=== PATIENT | female | born 1935 | race Caucasian/White ===

== ENCOUNTER 2017-09-23 13:43 | Outpatient (CLI) | payer MEDICARE, OTHER ==
--- NOTE | 2017-09-23 15:06 | RAD ---
PA AND LATERAL CHEST: Indication: Cough. Comparison: None. FINDINGS: There is prominent vertebral plana involving suspected L1 vertebral level. There is mild wedge compre ssion deformity of L2. Chronicity of these fractures is difficult to determine as no comparisons are available. There are healed rib deformities involving the anterior lateral 3rd through 7th ribs. No p leural effusion or pneumothorax is evident. Heart size is within normal limits. IMPRESSION: 1. Age indeterminate compression abnormalities of L1 and L2. MRI or bone scan may be helpful to docum ent chronicity. 2. Healed rib deformities involving the anterolateral right third through seventh ribs. 3. No definite acute cardiopulmonary abnormality. POS: [facility]
== END 2017-09-23 13:44 | disposition home or self-care (01) ==
LOC: NAV RAD 13:43
PROVIDERS: ATTEND Internal Medicine
DX: R05 Cough (principal)
CPT/HCPCS: 71020

== ENCOUNTER 2018-05-26 09:52 | Outpatient (CLI) | payer MEDICARE, OTHER ==
--- NOTE | 2018-05-26 10:40 | RAD ---
CHEST TWO VIEWS: History: Dyspnea. Comparison: 09-23-17 FINDINGS: Cardiac silhouette and pulmonary vasculature are unremarkable. The mediastinum is midline. There is c onfluent airspace consolidation, pneumothorax, or pleural fluid. Old right rib fractures and marked c ompression of the lower thoracic vertebral body are unchanged in appearance from the previous exam. IMPRESSION: Chronic type findings are stable. No active cardiopulmonary abnormalities are demonstrated. POS: [facility]
== END 2018-05-26 09:53 | disposition home or self-care (01) ==
LOC: NAV RAD 09:52
PROVIDERS: ATTEND Internal Medicine
DX: R06.02 Shortness of breath (principal)
CPT/HCPCS: 71046

== ENCOUNTER 2020-12-13 16:55 | Inpatient (IN) | payer MEDICARE, OTHER ==
[2020-12-13 17:45] LABS: Bilirubin Small (Negative); Blood, Urine Trace (Negative); Clarity Clear (Clear); Glucose, Urine (Dipstick) Negative (Negative); Ketone, Urine Negative (Negative); Leukocyte Negative (Negative); Nitrite Positive (Negative); Protein, Urine (Dipstick) Negative (Neg-Trace); Urobilinogen 0.2 mg/dL (Less than 2)
[2020-12-13 17:53] LABS: ALT (SGPT) 22 U/L (8-55); AST (SGOT) 30 U/L (5-34); Albumin 4.4 g/dL (3.4-4.8); Alkaline Phosphatase 80 U/L (40-110); Anion Gap 20 mmol/L (10-20); BUN (Urea Nitrogen) 20 mg/dL (9.8-20.1); Bilirubin, Total 0.6 mg/dL (0.2-1.2); Calc. Creatinine Clearance 0 mL/min (70-130); Calcium 9.1 mg/dL (7.8-10.44); Carbon Dioxide 18 mmol/L (23-31); Chloride 103 mmol/L (98-107); Globulin 3.5 g/dL (2.4-3.5); Glucose 151 mg/dL (83-110); Potassium 4.4 mmol/L (3.5-5.1); Protein, Total 7.9 g/dL (5.8-8.1); Sodium 137 mmol/L (136-145)
[2020-12-13 17:59] LABS: Base Excess-Venous -4.3 mmol/L (-2.0 to 3.0); Bicarbonate (HCO3v) 20.1 mmol/L (22.0-28.0); Calcium, Ionized 1.04 mmol/L (1.15-1.33); Chloride 104 mmol/L (98-107); Hemoglobin - Calc 12.9 g/dL (12.0-16.0); Potassium 4.2 mmol/L (3.5-5.1); Sodium 136 mmol/L (138-145); T. Carbon Dioxide 21.1 mmol/L (22.0-28.0); vO2 Saturation-calc 70.2 % (60.0-85.0)
[2020-12-13 18:01] LABS: Hemoglobin 12.3 g/dL (12.0-16.0); Mean Corpuscular HGB CONC 32.9 g/dL (32.0-36.0); Mean Corpuscular Hemoglobin 33.8 pg (27.0-31.0); Mean Platelet Volume 6.4 fL (7.4-10.4); Platelet Count 255 thou/uL (130-400); RBC Distribution Width 11.8 % (11.5-14.5); Red Blood Cell (RBC) Count 3.64 mill/uL (4.20-5.40); White Blood Cell (WBC) Count 12.1 thou/uL (4.8-10.8)
[2020-12-13 18:05] LABS: RBC/HPF 0-3 HPF (0-3); Squamous Epithelial 0-3 HPF (0-3); WBC/HPF 0-3 HPF (0-3)
[2020-12-13 18:06] LABS: Bacteria/HPF 2+ HPF (None Seen)
[2020-12-13] MEDS ORDERED: Sodium Chloride 0.9% 500 ML ONE (18:11)
[2020-12-13 18:17] LABS: Band 8 % (5-11); Lymphocytes 10 % (21-51); MDiff Complete? YES; Macrocytosis SLIGHT = 6-15 cells (100X) (0-5/hpf); Monocytes 15 % (0-10); Neutrophil 67 % (42-75); Platelet Morphology Comment Appears Adequate
--- NOTE | 2020-12-13 18:18 | RAD ---
AP CHEST: 12/13/20 HISTORY: Cough with fever. COMPARISON: 05/26/18. No focal infiltrate identified. Heart size is upper normal. Vasculature normal. Tiny effusions not ex cluded. IMPRESSION: No evidence of focal infiltrate. POS: [facility]
[2020-12-13] MEDS ORDERED: cefTRIAXone\\ROCEPHIN 2 GM VIAL ONE (19:16)
[2020-12-13] MEDS ORDERED: Sodium Chloride 0.9% 100 ML ONE (19:16)
[2020-12-13] MEDS ORDERED: Sodium Chloride 0.9% 250 ML 250 ML ONE (19:18)
[2020-12-13 20:01] LABS: SARS-CoV-2 NAA Rapid Test Not Detected (NotDetected)
[2020-12-13 22:22] VITALS: BMI 22.1
[2020-12-13] MEDS: D5 1/4 NS 1,000 ML IV SCH (23:48)
[2020-12-14 06:06] LABS: Anisocytosis SLIGHT = 6-15 cells (100X) (0-5/hpf); Band 19 % (5-11); Eosinophils 1 % (0-10); Hemoglobin 11.1 g/dL (12.0-16.0); Lymphocytes 13 % (21-51); MDiff Complete? YES; Mean Corpuscular HGB CONC 33.6 g/dL (32.0-36.0); Mean Corpuscular Hemoglobin 34.1 pg (27.0-31.0); Mean Platelet Volume 6.1 fL (7.4-10.4); Metamyelocyte 3 % (0-0); Monocytes 10 % (0-10); Myelocyte 1 % (0-0); Neutrophil 53 % (42-75); Platelet Count 214 thou/uL (130-400); Platelet Morphology Comment Appears Adequate; RBC Distribution Width 11.6 % (11.5-14.5); Red Blood Cell (RBC) Count 3.27 mill/uL (4.20-5.40); White Blood Cell (WBC) Count 13.6 thou/uL (4.8-10.8)
[2020-12-14 06:08] LABS: Anion Gap 16 mmol/L (10-20); BUN (Urea Nitrogen) 12 mg/dL (9.8-20.1); Calc. Creatinine Clearance 49 mL/min (70-130); Carbon Dioxide 20 mmol/L (23-31); Chloride 105 mmol/L (98-107); Glucose 137 mg/dL (83-110); Potassium 4.2 mmol/L (3.5-5.1); Sodium 137 mmol/L (136-145)
[2020-12-14] MEDS ORDERED: traZODone HCl 50 MG TAB PO PRN (12:41)
[2020-12-14] MEDS: D5 1/4 NS 1,000 ML IV SCH (14:33)
[2020-12-14] MEDS: Timolol 0.5% Ophth Soln 5 ml Bottle EA EYE SCH (20:59)
[2020-12-14] MEDS: Amlodipine 5 MG TAB PO SCH (20:59)
[2020-12-14] MEDS: Atorvastatin Calcium 20 MG TAB PO SCH (21:13)
[2020-12-15] MEDS: D5 1/4 NS 1,000 ML IV SCH (02:59)
[2020-12-15 06:22] LABS: Anion Gap 15 mmol/L (10-20); BUN (Urea Nitrogen) 6 mg/dL (9.8-20.1); Calc. Creatinine Clearance 53 mL/min (70-130); Carbon Dioxide 20 mmol/L (23-31); Chloride 108 mmol/L (98-107); Glucose 123 mg/dL (83-110); Sodium 140 mmol/L (136-145)
[2020-12-15 06:34] LABS: Potassium 2.8 mmol/L (3.5-5.1)
[2020-12-15] MEDS ORDERED: Potassium Chloride 20 MEQ TAB PO SCH ×2 (08:30→09:30)
[2020-12-15] MEDS ORDERED: D5 1/4 NS w/20 mEq KCL 1,000 ML IV SCH (08:30)
[2020-12-15] MEDS: Fluticasone Propionate Nasal Spray 16 gm Bottle NASAL SCH (10:32)
[2020-12-15 10:44] LABS: #Basophils 0.1 thou/uL (0.0-0.2); #Eosinphils 0.2 thou/uL (0.0-0.7); #Lymphocytes 1.3 thou/uL (1.20-3.40); #Monocytes 1.8 thou/uL (0.11-0.59); #Neutrophils 9.3 thou/uL (1.40-6.50); %Basophils 0.6 % (0.0-1.0); %Eosinophils 1.8 % (0.0-10.0); %Lymphocytes 10.1 % (21.0-51.0); %Monocytes 13.9 % (0.0-10.0); %Neutrophils 73.6 % (42.0-75.0); Hemoglobin 13.2 g/dL (12.0-16.0); Mean Corpuscular HGB CONC 32.3 g/dL (32.0-36.0); Mean Platelet Volume 5.6 fL (7.4-10.4); Platelet Count 244 thou/uL (130-400); RBC Distribution Width 12.2 % (11.5-14.5); Red Blood Cell (RBC) Count 3.88 mill/uL (4.20-5.40); White Blood Cell (WBC) Count 12.6 thou/uL (4.8-10.8)
--- NOTE | 2020-12-15 11:36 | PRG ---
DATE OF SERVICE: 12/14/2020 SUBJECTIVE: The patient is more awake and alert, lucid, still not eating well, still very weak and confused and unable to get out of bed without assistance. OBJECTIVE: VITAL SIGNS: Temperature 97.5, pulse 99, respirations 18, O2 saturations 96% on 2 L, blood pressure 141/62. LABORATORY DATA: White count is up to 13.6, hematocrit 33, hemoglobin 11, bands 19%. Sodium is 137, potassium 4.2, chloride 105, bicarb 26, BUN 12, and creatinine 0.72. Urine culture still pending. ASSESSMENT: 1. Resolving signs of sepsis with increased mentation, decreased tachycardia, but with increased white count and still not eating well, so we will continue IV fluids. Continue IV Rocephin. Await results of urine and blood cultures. 2. Anxiety and depression. We will start back on her routine benzodiazepine. 3. Hypertension, controlled to goal. Continue amlodipine. PLAN: 1. Continue D5 quarter normal saline at 75 an hour. 2. Continue oral Levaquin. 3. Continue amlodipine and monitor vital signs. 4. Continue to stress oral intake. Job ID: [id number]
--- NOTE | 2020-12-15 11:42 | PRG ---
DATE OF SERVICE: 12/15/2020 SUBJECTIVE: The patient is awake and alert, confused, but at her baseline mental status this time, oriented times person and place, more cheerful, and is eating better. Her IV has started to leak and will be discontinued as she is eating now. She has been found however to have significant hypokalemia this morning and will be started on oral potassium. OBJECTIVE: VITAL SIGNS: Temperature 96.9, pulse is down to 90, respirations 18, O2 sats 93% on room air, blood pressure 128/59. LUNGS: Clear. CARDIAC: Shows regular rhythm. ABDOMEN: Soft and nontender. LABORATORY DATA: Show BNP of 85. Sodium 140, potassium down to 2.8, chloride 108, bicarb is 20, BUN is down to 6, creatinine 0.67 with GFR up to 83 from initial admission GFR 58. ASSESSMENT AND PLAN: 1. Resolving sepsis syndrome and metabolic encephalopathy at baseline mental status and normal vital signs and baseline renal function. 2. Urinary tract infection with culture pending on IV Rocephin until sensitivities returned, hopefully switch to oral antibiotics. 3. New onset of hypokalemia and we will start on KCl 20 mEq twice daily as IV has been discontinued as long as the patient is eating. Job ID: [id number]
[2020-12-15] MEDS: Timolol 0.5% Ophth Soln 5 ml Bottle EA EYE SCH ×2 (14:00→21:07)
[2020-12-15] MEDS: Potassium Chloride 20 MEQ TAB PO SCH (16:40)
--- NOTE | 2020-12-15 18:00 | HP ---
CHIEF COMPLAINT: Altered mental status, confusion, weakness, and urinary tract infection. HISTORY OF PRESENT ILLNESS: The patient is a very pleasant 85-year-old white female, well known to myself, with a long history of minimal dementia, hypertension, and anxiety, who has become increasingly confused over the last week, unable to maintain ADLs, and has had a fall at home with trauma to her chest wall. She was brought into the clinic today wheelchair, was not responding appropriately to questions, and appeared to be significantly more altered, and therefore, was transferred to the emergency room where she was found to have a significant urinary tract infection and felt to be encephalopathic with tachycardia, significant for possible early dehydration or sepsis, and required admission to the hospital. She was started on IV saline as well as Rocephin, and urine cultures and blood cultures were done. PAST MEDICAL HISTORY: As mentioned above, positive for: 1. Slowly gradually progressive dementia. 2. Osteoarthritis. 3. Anxiety. 4. Irritable bowel. 5. Hyperlipidemia. 6. Hypertension. ALLERGIES: SHE IS ALLERGIC TO LISINOPRIL, BUT NOT ATORVASTATIN. SOCIAL HISTORY: She lives with her . Has a sitter. She is a nonsmoker. She does have a history of chronic EtOH abuse, drinking 3 to 6 beers daily. She is up-to-date on her pneumonia and flu vaccines. REVIEW OF SYSTEMS: Obtained from the sitter and the as she is unable to answer questions appropriately. They state that she is not eating, but is having no nausea or vomiting. She is having no cough. Denies shortness of breath. She is not complaining of any pain. She does not have any diarrhea. PHYSICAL EXAMINATION: GENERAL: An elderly white female, sitting in the wheelchair, awake and alert, but minimally verbally responsive, who is oriented to person, but not time and place. VITAL SIGNS: Temperature 98.5, pulse 126, respirations 18, O2 sats 94% on 2 L, and blood pressure 163/61. HEENT: Pupils are equal, round, and reactive to light and accommodation. Sclerae pale. Conjunctivae pale. Oral mucous membranes dehydrated. NECK: Supple. There are no nodes or masses. JVP is not elevated. LUNGS: Clear. CARDIAC: Regular rhythm. ABDOMEN: Soft and nontender. SKIN AND EXTREMITIES: No edema, clubbing, or cyanosis. There are incisions previous knee surgery. NEUROLOGIC: Cranial nerves 2 through 12 are intact. Deep tendon reflexes are 2+ and equal. Absent Babinski's. The patient as mentioned was only oriented to person. LABORATORY DATA: White count of 12,100, hematocrit 37, and hemoglobin 12. Sodium is 137, potassium 4.4, chloride 103, bicarb 18, BUN 20, creatinine 0.92, glucose 151, and GFR 58. AST 30, ALT 22, lactic acid 1.5, and albumin 4.4. Urinalysis did show positive nitrite, 2+ bacteria. COVID and flu tests were negative. ASSESSMENT: 1. Urinary tract infection with sepsis syndrome. 2. Dehydration with decreased GFR. 3. Metabolic encephalopathy, most likely due to urinary tract infection and dehydration. PLAN: 1. IV D5 quarter normal saline at 125 an hour. 2. Rocephin 1 g IV piggyback daily. 3. Urine and blood cultures. 4. Repeat CBC, basic metabolic profile, and lactic acid in the a.m. Job ID: [id number]
[2020-12-15] MEDS: Atorvastatin Calcium 20 MG TAB PO SCH (21:06)
[2020-12-15] MEDS: Amlodipine 5 MG TAB PO SCH (21:06)
[2020-12-16 05:50] LABS: Sodium 142 mmol/L (136-145)
[2020-12-16 05:51] LABS: Anion Gap 16 mmol/L (10-20); Calcium 7.7 mg/dL (7.8-10.44); Carbon Dioxide 19 mmol/L (23-31); Chloride 110 mmol/L (98-107); Glucose 98 mg/dL (83-110)
[2020-12-16 05:53] LABS: BUN (Urea Nitrogen) 8 mg/dL (9.8-20.1); Calc. Creatinine Clearance 52 mL/min (70-130)
[2020-12-16] MEDS: Potassium Chloride 20 MEQ TAB PO SCH ×2 (08:45→17:27)
[2020-12-16] MEDS: Fluticasone Propionate Nasal Spray 16 gm Bottle NASAL SCH (08:46)
[2020-12-16] MEDS: Timolol 0.5% Ophth Soln 5 ml Bottle EA EYE SCH ×2 (08:46→20:47)
[2020-12-16] MEDS: Atorvastatin Calcium 20 MG TAB PO SCH (20:47)
[2020-12-16] MEDS: Amlodipine 5 MG TAB PO SCH (20:47)
--- NOTE | 2020-12-17 06:03 | PRG ---
DATE OF SERVICE: 12/16/2020 SUBJECTIVE: The patient is awake and alert, appears to be at baseline mental status, slightly confused, but in no distress. Eating very well. OBJECTIVE: VITAL SIGNS: Temperature is 99.3, pulse 89, respirations 16, O2 saturations 95% on room air, blood pressure is 147/68. LUNGS: Clear. CARDIAC: Shows regular rhythm. ABDOMEN: Soft and nontender. LABORATORY DATA: Show a sodium of 142, potassium up to 3.0, chloride 110, bicarb 19, BUN is 8, creatinine 0.69, glucose 98. Blood cultures negative at 48 hours. Urine culture showed contaminated urine and has been redone. ASSESSMENT: 1. Resolving urinary tract infection with repeat culture pending, as was contaminated before. 2. Persistent hypokalemia, on oral supplementation. 3. Resolved metabolic encephalopathy, back to baseline, mild dementia. PLAN: 1. Continue oral potassium 20 twice daily. 2. Continue Levaquin 500 daily. 3. Await results of culture. 4. Possible discharge tomorrow or the next day. Job ID: [id number]
[2020-12-17 06:55] LABS: Anion Gap 15 mmol/L (10-20); BUN (Urea Nitrogen) 8 mg/dL (9.8-20.1); Calc. Creatinine Clearance 53 mL/min (70-130); Calcium 8.3 mg/dL (7.8-10.44); Carbon Dioxide 21 mmol/L (23-31); Chloride 108 mmol/L (98-107); Glucose 94 mg/dL (83-110); Potassium 3.3 mmol/L (3.5-5.1); Sodium 141 mmol/L (136-145)
[2020-12-17] MEDS: Potassium Chloride 20 MEQ TAB PO SCH ×2 (08:44→17:36)
[2020-12-17] MEDS: Timolol 0.5% Ophth Soln 5 ml Bottle EA EYE SCH ×2 (08:45→22:08)
[2020-12-17] MEDS: Fluticasone Propionate Nasal Spray 16 gm Bottle NASAL SCH (08:45)
[2020-12-17] MEDS: Atorvastatin Calcium 20 MG TAB PO SCH (22:08)
[2020-12-17] MEDS: Amlodipine 5 MG TAB PO SCH (22:09)
[2020-12-18 08:25] VITALS: BP 131/69; TEMP 97
[2020-12-18] MEDS: Potassium Chloride 20 MEQ TAB PO SCH (08:35)
[2020-12-18] MEDS: Fluticasone Propionate Nasal Spray 16 gm Bottle NASAL SCH (08:36)
[2020-12-18] MEDS: Timolol 0.5% Ophth Soln 5 ml Bottle EA EYE SCH (08:36)
== END 2020-12-18 11:10 | disposition home or self-care (01) | DRG 871 ==
LOC: NAV ERS 16:55 → NAV ACUTE 21:58
PROVIDERS: ADMIT Internal Medicine; ATTEND Internal Medicine
DX: A41.9 Sepsis, unspecified organism (principal); G93.41 Metabolic encephalopathy; N39.0 Urinary tract infection, site not specified; I10 Essential (primary) hypertension; F41.9 Anxiety disorder, unspecified; F32.9 Major depressive disorder, single episode, unspecified; F03.90 Unspecified dementia, unspecified severity, without behavioral disturbance, psychotic disturbance, mood disturbance, and anxiety; E78.5 Hyperlipidemia, unspecified; M19.90 Unspecified osteoarthritis, unspecified site; E86.0 Dehydration; Z20.822 Contact with and (suspected) exposure to COVID-19; M81.0 Age-related osteoporosis without current pathological fracture; K21.9 Gastro-esophageal reflux disease without esophagitis; H40.1131 Primary open-angle glaucoma, bilateral, mild stage; J30.9 Allergic rhinitis, unspecified; K58.1 Irritable bowel syndrome with constipation; K58.0 Irritable bowel syndrome with diarrhea; M54.5 Low back pain; E87.6 Hypokalemia; Z88.8 Allergy status to other drugs, medicaments and biological substances; Z79.899 Other long term (current) drug therapy
CPT/HCPCS: 0240U; 36415; 36416; 71045; 80048; 80053; 81003; 81015; 82330; 82803; 83605; 83880; 85025; 87040; 87086; 87804; 94760; 96365; 96367; J0696; J3370; J3490; J7030; J7042; J7050